=== PATIENT | female | born 1990 | race Caucasian/White ===

== ENCOUNTER 2018-02-20 00:05 | Emergency (ER) | payer OTHER ==
[~2018-02-20] VITALS: Ht 167.6 cm; Wt 97.5 kg
[2018-02-20 00:15] VITALS: Ht 167.6 cm; Wt 97.5 kg
[2018-02-20 01:55] VITALS: BP 112/89
== END 2018-02-20 01:55 | disposition home or self-care (01) ==
LOC: ED 00:05
DX: S93.402A Sprain of unspecified ligament of left ankle, initial encounter (principal); X50.1XXA Overexertion from prolonged static or awkward postures, initial encounter; Y93.89 Activity, other specified; Y92.89 Other specified places as the place of occurrence of the external cause; Y99.8 Other external cause status
CPT/HCPCS: J1885

== ENCOUNTER 2018-07-08 18:16 | Emergency (ER) | payer OTHER ==
[~2018-07-08] VITALS: Ht 167.6 cm; Wt 101.2 kg
[2018-07-08 18:41] VITALS: Ht 167.6 cm; Wt 101.2 kg
[2018-07-08 19:35] VITALS: BP 136/71
== END 2018-07-08 19:35 | disposition home or self-care (01) ==
LOC: ED 18:16
DX: S92.812A Other fracture of left foot, initial encounter for closed fracture (principal); X50.1XXA Overexertion from prolonged static or awkward postures, initial encounter; Y93.89 Activity, other specified; Y92.89 Other specified places as the place of occurrence of the external cause; Y99.8 Other external cause status